=== PATIENT | female | born 1995 | race Caucasian/White ===

== ENCOUNTER 2018-10-08 20:21 | Emergency (ER) | payer OTHER ==
--- NOTE | 2018-10-08 20:31 | UC ---
Ear Complaint HPI - HPI Summary HPI Summary: Patient presents to urgent care for evaluation treatment of left ear pain. Patient states his been up a 24 hours. Much worse the last 8 hours. Patient states she also feeling little bit dizzy particularly with movement of her head. No nausea vomiting. 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 Patient's never had tympanostomy tubes. Patient did take Sudafed but did not take anything for pain. Patient states when she swallows she has increased pressure in her ear. No nasal congestion. No fevers or chills. No rash. No nausea vomiting. Patient states she isn't . Patient's medications reviewed this visit. - History of Current Complaint Stated Complaint: EAR PAIN, DIZZY Time Seen by Provider: 10/08/18 20:23 Hx Last Menstrual Period: 2 weeks ago ?: No Onset/Duration: Gradual Onset Severity Initially: Mild Severity Currently: Moderate - Allergies/Home Medications Allergies/Adverse Reactions: Allergies Allergy/AdvReac Type Severity Reaction Status Date / Time No Known Allergies Allergy Verified 10/08/18 20:33 Home Medications: Home Medications Ethinyl Estradiol/Drospirenone [Rafaela 28 Tablet] 1 tab PO DAILY 10/08/18 [History Confirmed 10/08/18] Loratadine [Claritin] 1 tab PO DAILY 10/08/18 [History Confirmed 10/08/18] Olmesartan/Hydrochlorothiazide [Benicar Hct 20-12.5 mg Tablet] 1 tab PO DAILY [History Confirmed 10/08/18] Pseudoephedrine HCl [Sudafed] 1 tab PO ONCE PRN 10/08/18 [History Confirmed ] PMH/Surg Hx/FS Hx/Imm Hx Previously Healthy: Yes - TM rupture x 2, seizures - Surgical History Surgical History: Yes Surgery Procedure, Year, and Place: tonsillectomy - Family History Known Family History: Positive: Non-Contributory Negative: Diabetes - Social History Occupation: Employed Full-time Alcohol Use: Occasionally Substance Use Type: None Smoking Status (MU): Never Smoked Tobacco Review of Systems All Other Systems Reviewed And Are Negative: Yes Constitutional: Positive: Negative Skin: Positive: Negative Eyes: Positive: Negative ENT: Positive: Ear Ache. Negative: Dental Pain, Sore Throat Respiratory: Positive: Negative Cardiovascular: Positive: Negative Gastrointestinal: Positive: Negative Genitourinary: Positive: Negative Motor: Positive: Negative Neurovascular: Positive: Negative Musculoskeletal: Positive: Negative Neurological: Positive: Other - dizziness Physical Exam - Summary Physical Exam Summary: Vital Signs Reviewed: Yes A+Ox3, holding ear, appear uncomfortable Eyes: Conjunctiva Clear, JAMES. EOM intact and full ENT: Hearing grossly normal right TM wnl, left TM ++ fluid, mild erythema TM intact, turbinates boggy, no PND, mmoist, uvula midline, no exudate, no erythema Neck: Positive: Supple Respiratory: Positive: No respiratory distress, No accessory muscle use + CTA throughout no w/r Cardiovascular: RRR nl s1, s2 no m/r CBT <2 sec abd soft + BS nt/nd no guarding, no distension Musculoskeletal Exam: PARDO x 4 without difficulty Strength Intact, ROM Intact Neurological: Positive: Alert, + sensation throughout pt with inreased dizziness with lateral rotation of head ambulatory without assistance Psychological: Positive: Normal Response To examiner Skin: Positive: no rash, no ecchymosis Triage Information Reviewed: Yes Ear Complaint Course/Dx - Course Course Of Treatment: Patient presents with left ear fullness of breath progressed to left ear pain. Patient states over the last several hours she developed a dizzy. Patient with history of similar and has had eardrum ruptures in the past. No fevers or chills. No analgesia taken. Patient's nose is little stuffy. Patient to take Sudafed with little improvement. On exam vital signs are stable. Patient ambulatory without assistance. Patient does have left otitis media clinically. Turbinates are minimally inflamed. Recommend antibiotics as well as Flonase. Continue with Sudafed. Motrin Tylenol. Work note given as needed. Patient comfortable in agreement with plan. Mom present will be driving her home. - Differential Dx/Diagnosis Provider Diagnosis: Left otitis media Discharge - Sign-Out/Discharge Documenting (check all that apply): Patient Departure All imaging exams completed and their final reports reviewed: No Studies - Discharge Plan Condition: Stable Disposition: HOME Prescriptions: Amoxicillin/Clavulanate TAB* [Augmentin TAB 875*] 875 mg PO BID #19 tab Fluticasone NASAL SPRAY 50MCG* [Flonase NASAL SPRAY 50MCG*] 2 spray BOTH NARES DAILY #1 btl Patient Education Materials: Ear Infection (ED) Forms: *Work Release Referrals: Giorgio Miguel, SKATING RINK MANAGER [Primary Care Provider] - Additional Instructions: - take antibiotics as prescribed until gone - okay to alternate ibuprofen (Advil. Motrin) or Tylenol every 3hours for pain. Take with food. Don't take for more than 4-5 days - continue with decongestant (Sudafed, Claritin-D, Chikis-D, Zyretec-D) - Stay hydrated - drink plenty of non-alcoholic, non-caffinated beverages - get plenty of restful sleep - slowly change positions - lying to sitting, sitting to standing - use nasal spray as prescribed - contact your doctor or return with questions or concerns - Billing Disposition and Condition Condition: STABLE Disposition: Home
[2018-10-08 20:33] VITALS: BP 132/81
[2018-10-08] MEDS ORDERED: Amoxicillin/Clavulanate TAB* 875 MG PO ONE (20:50)
== END 2018-10-08 20:57 | disposition home or self-care (01) ==
LOC: UCEAST 20:21
DX: H66.92 Otitis media, unspecified, left ear (principal)
CPT/HCPCS: 99212; A9270-GY; G0463

== ENCOUNTER 2018-11-28 14:24 | Emergency (ER) | payer OTHER ==
--- OUTSIDE RECORDS SUMMARY | 2018-11-28 14:29 | XMS REPORT | Continuity of Care Document ---
:1995 External Reference #:[id number] Author Name Maria De Jesus Thomas O.D. Address [address] [place] [address] Care Team Providers Name Role Phone Giorgio Miguel CHARACTER ACTOR - Nurse Care Team Information Ornamental Metal Worker Helper [phone] Practitioner Problems Active Problems Provider Date Hypothyroidism Onset: Essential hypertension Onset: Seasonal allergy Onset: Pain in eye Maria De Jesus Thomas O.D. Onset: 02/16/2017 Myopia Maria De Jesus Thomas O.D. Onset: 10/17/2018 Social History Type Date Description Comments Sex Unknown ETOH Use Rarely consumes alcohol Tobacco Use Start: Unknown Patient has never smoked Recreational Drug Use Denies Drug Use Smoking Status Reviewed: 10/17/18 Patient has never smoked Allergies, Adverse Reactions, Alerts Description No Known Drug Allergies Medications Active Medications SIG Qnty Indications Ordering Date Provider Cymbalta Unknown 20mg Caps DR Part Omeprazole Unknown 10mg Capsules DR Levothyroxine Sodium Unknown 25mcg Tablets Hydrochlorothiazide Unknown 12.5mg Capsules Rafaela Unknown 3-0.02mg Tablets Claritin 1 tablet per Unknown 10mg Tablets day Topamax Unknown 25mg Tablets Immunizations Description No Information Available Vital Signs Description No Information Available Results Description No Information Available Procedures Description No Information Available Medical Devices Description No Information Available Encounters Description No Information Available Assessments Date Code Description Provider 10/17/2018 H52.13 Myopia, bilateral Maria De Jesus Thomas O.D. Plan of Treatment 10/17/2018 - Maria De Jesus Thomas O.D.H52.13 Myopia, bilateralComments:Smoking can increase the risk of developing or worsening any eye related disease, as well as affect your overall health. If you are a smoker, we strongly recommend that you quit.If you are not a smoker, we strongly recommend that you do not start. You have Myopia, or near sightedness. I have given you a prescription for glasses and contact lens trialsFollow up:2 weeks CL check Functional Status Description No Information Available Mental Status Description No Information Available Referrals Description No Information Available
--- OUTSIDE RECORDS SUMMARY | 2018-11-28 14:29 | XMS REPORT | Continuity of Care Document ---
:1995 External Reference #:[id number] Author Name Giorgio Miguel N.P. Address [address] [place] [id number] Problems Active Problems Provider Date Depressive disorder Giorgio Miguel N.Alexander Onset: 06/09/2014 Anxiety Giorgoi Miguel N.Alexander Onset: 06/09/2014 Hypothyroidism Giorgio Miguel N.Alexander Onset: 11/20/2015 Essential hypertension Giorgio Miguel N.PShanell Onset: 05/31/2016 Seizure Giorgio Miguel NDawit Onset: 11/16/2017 Social History Type Date Description Comments Sex Unknown Tobacco Use Start: Unknown Patient has never smoked Smoking Status Reviewed: 10/17/18 Patient has never smoked Allergies, Adverse Reactions, Alerts Description No Known Drug Allergies Medications Active Medications SIG Qnty Indications Ordering Date Provider Duloxetine HCL Take One 90Caps Lamont, 09/28/2018 60mg Caps Capsule By Giorgio N.P. DR Cardoza Mouth Daily Levothyroxine Sodium Take 1 Tablet 90Tablet Lamont, 09/03/2018 By Mouth Daily Giorgio N.P. 75mcg Tablets Olmesartan Take 1 Tablet 90Tablet Lamont, 09/03/2018 Medoxomil/Hydrochlorot By Mouth Daily Giorgio, N.P. hiazide 20-12.5mg Tablets Omeprazole Take 1 Capsule 90Caps Lamont, 08/05/2018 20mg Capsules By Mouth Every Bessiehelle, N.P. DR Nadia Alexander Take 1 Tablet 84tabs Lamont, 05/07/2018 3-0.02mg Tablets By Mouth Every Bessiehelle, N.P. Day Topiramate Take 1 Tablet 60tabs Lamont, 12/21/2017 50mg Tablets By Mouth Twice Bessiehelle, N.P. A Day Work Note no work Lamont, 11/16/2017 04/12/18-04/13/18 Giorgio N.PShanell for medical reasons Drospirenone-Ethinyl 1 by mouth 28tabs Lamont, 05/19/2017 Estradiol every day Giorgio, N.PShanell 3-0.02mg Tablets History Medications Omeprazole Take 1 Capsule By 90caps Giorgio Miguel, 04/20/2018 - 20mg Mouth Every Day N.P. 08/05/[address] Immunizations CPT Code Status Date Vaccine Lot # [id number] Given 11/16/2017 Influenza Vac, Quadrivalent, Split, 0.5mL Dosage, [id number] Im Use 17352 Given 12/19/2013 Afluria Or Fluvirin Flu Vac Intramuscular [id number] 22010 Given 11/02/2011 Menactra/Menveo Meningococcal Vaccine [id number] 77157 Given 11/02/2011 Tdap (Adacel) Ages 7 And Above Only [id number] 98041 Given 06/16/1998 DTP Immunization 13142 Given 06/16/1998 Oral Poliovirus Immunization 08315 Given 06/16/1998 MMR Virus Immunization [id number] Q2038 Given 12/09/1997 Fluzone Trivalent Immunization [id number] 53098 Given 05/29/1995 DTP Immunization 77564 Given 05/29/1995 Hib Pedvaxhib Vac 3 Dose Schedule 08412 Given 02/15/1995 Varicella (Chicken Pox) Immunization [id number] 80760 Given 02/15/1995 Varicella (Chicken Pox) Immunization [id number] 39015 Given 02/15/1995 MMR Virus Immunization [id number] 71873 Given 1994 Hib Pedvaxhib Vac 3 Dose Schedule 15550 Given 1994 Hepatitis B Vac Ped/Adolescent 3 Dose Schedule 60379 Given 1994 IPV / Poliomyelitis Immunization 09144 Given 1994 DTP Immunization 17610 Given 1994 Hib Pedvaxhib Vac 3 Dose Schedule 08871 Given 1994 IPV / Poliomyelitis Immunization 48221 Given 1994 DTP Immunization 27509 Given 1994 Hepatitis B Vac Ped/Adolescent 3 Dose Schedule 94590 Given 1994 IPV / Poliomyelitis Immunization 77823 Given 1994 DTP Immunization 42368 Given 1994 Hib Pedvaxhib Vac 3 Dose Schedule 94010 Given 1994 Hepatitis B Vac Ped/Adolescent 3 Dose Schedule 09508 Refused 05/19/2017 Influenza Vac, Quadrivalent, Split, 0.5mL Dosage, Im Use Vital Signs Date Vital Result Comment 10/17/2018 12:44pm Body Temperature 97.9 F Weight 196.25 lb Heart Rate 102 /min BP Systolic 104 mmHg BP Diastolic 68 mmHg Height 67 inches 5'7" O2 % BldC Oximetry 99 % BMI (Body Mass Index) 30.7 kg/m2 04/12/2018 1:17pm Body Temperature 97.9 F Weight 210.50 lb Heart Rate 90 /min BP Systolic 124 mmHg BP Diastolic 68 mmHg O2 % BldC Oximetry 99 % Results Test Date Facility Test Result H/L Range Note Laboratory test finding 10/17/2018 [facility] <pending> Procedures Description No Information Available Medical Devices Description No Information Available Encounters Description No Information Available Assessments Date Code Description Provider 10/17/2018 I10 Essential (primary) hypertension Giorgio Miguel, N.P. 10/17/2018 E03.9 Hypothyroidism, unspecified Giorgio Miguel, N.P. 10/17/2018 F39 Unspecified mood [affective] disorder Giorgio Miguel, N.P. 10/17/2018 K21.9 Gastro-esophageal reflux disease without Giorgio Miguel, N.P. esophagitis Plan of Treatment 10/17/2018 - Giorgio Miguel, N.P.I10 Essential (primary) hypertensionComments : stable with current meds. Cont benicar, lose weight, decrease salt in diet pt inst to monitor B/Pat home/work 2-3 times per week and report abngoal: < 140/90 may consider reducing medication dosein near future with additinoal weight lossE03.9 Hypothyroidism, unspecifiedComments:f/u lab results from [id number] Unspecified mood [affective] disorderComments:currently stable on medications (Cymbalta 60mg)she will cont same, attend counseling and recheck 3 moK21.9 Gastro-esophageal reflux disease without esophagitisComments:stable at this time with prilosec 20mg qdavoid GERD precipitants as discussedreport increasing symps, abd pain, or diff or painful swallowing Functional Status Description No Information Available Mental Status Description No Information Available Referrals Description No Information Available
--- OUTSIDE RECORDS SUMMARY | 2018-11-28 14:29 | XMS REPORT | Continuity of Care Document ---
:1995 External Reference #:[id number] Author Name Maria De Jesus Thomas O.D. Address [address] [place] [address] Care Team Providers Name Role Phone Giorgio Miguel ASSOCIATE ENTERTAINMENT EDITOR - Nurse Care Team Information Rattlesnake Farmer [phone] Practitioner Problems Active Problems Provider Date Hypothyroidism [...] Available Results Description No Information Available Procedures Date Code Description Status 10/17/2018 32018 Determination Of Refractive State Completed 10/17/2018 83274 Est Patient Comprehensive Exam Completed 10/17/2018 101 Level 1 SCL Fit/Refit Completed Medical Devices Description No Information Available Encounters Description No Information Available Assessments Date Code Description Provider 10/17/2018 H52.13 Myopia, bilateral Maria De Jesus Thomas O.D. Plan of Treatment No Information Available Functional Status Description No Information Available Mental Status Description No Information Available Referrals Description No Information Available
[2018-11-28 14:51] VITALS: BP 142/80
--- NOTE | 2018-11-28 15:23 | UC ---
Respiratory Complaint HPI - HPI Summary HPI Summary: 23 year old female with PMH + for ear tubes in past presents with fever 103 on monday, below 100 since, sinus congestion, chest congestion. Cough- non- productive typically, occassionaly will cough up phlegm. + fatigue, muscle aches. Denies ear pain, SOB, throat pain. no recent ABX, no recent illnesses. 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 - History of Current Complaint Chief Complaint: UCRespiratory Stated Complaint: CHEST CONGESTION AND COUGH Time Seen by Provider: 11/28/18 15:07 Hx Obtained From: Patient, Family/Body Shop Worker - mother Hx Last Menstrual Period: 1 month ago ?: No Onset/Duration: Sudden Onset, Lasting Days - since Monday, Still Present Timing: Constant Severity Currently: None Pain Intensity: 0 Pain Scale Used: 0-10 Numeric Character: Cough: Nonproductive Associated Signs And Symptoms: Positive: Fever, Chills, Dizziness - intermittent - Allergies/Home Medications Allergies/Adverse Reactions: Allergies Allergy/AdvReac Type Severity Reaction Status Date / Time No Known Allergies Allergy Verified 11/28/18 14:47 PMH/Surg Hx/FS Hx/Imm Hx Previously Healthy: Yes - Surgical History Surgical History: Yes Surgery Procedure, Year, and Place: tonsillectomy - Family History Known Family History: Positive: Non-Contributory Negative: Diabetes - Social History Alcohol Use: Occasionally Substance Use Type: None Smoking Status (MU): Never Smoked Tobacco Review of Systems All Other Systems Reviewed And Are Negative: Yes Constitutional: Positive: Fever, Chills, Fatigue ENT: Positive: Sinus Congestion, Sinus Pain/Tenderness. Negative: Sore Throat, Ear Ache, Nasal Discharge Respiratory: Positive: Cough. Negative: Shortness Of Breath Is Patient Immunocompromised?: No Physical Exam Triage Information Reviewed: Yes Appearance: Well-Appearing, No Pain Distress, Well-Nourished Vital Signs: Initial Vital Signs Temp 98.5 F 11/28/18 14:49 Pulse 99 11/28/18 14:49 Resp 18 11/28/18 14:49 BP 142/80 11/28/18 14:49 Pulse Ox 99 11/28/18 14:49 Vital Signs Reviewed: Yes Eyes: Positive: Conjunctiva Clear ENT: Positive: Hearing grossly normal, Pharyngeal erythema, TMs normal, Uvula midline. Negative: Nasal congestion, TM bulging, TM dull, TM red, Tonsillar swelling, Tonsillar exudate, Sinus tenderness Neck: Positive: Supple, Nontender, No Lymphadenopathy - posterior or anterior cervical Respiratory: Positive: Chest non-tender, Lungs clear, Normal breath sounds, No respiratory distress, No accessory muscle use. Negative: Respiratory distress, Crackles, Rhonchi, Stridor, Wheezing, Expiration Cardiovascular: Positive: RRR, No Murmur Neurological Exam: Normal Neurological: Positive: Alert Psychological Exam: Normal Psychological: Positive: Normal Response To Family Skin Exam: Normal Respiratory Course/Dx - Course Course Of Treatment: Upper Respiratory infections, likely viral - Viral infections typically resolve after 5-7 days - Conservative treatment - Motrin/ Tylenol as needed for pain, fever - Increase fluid intake due to possible dehyration and to help flush out system - Work note given for tomorrow. - Differential Dx/Diagnosis Differential Diagnosis/HQI/PQRI: Laryngitis, Lower Resp Infection, Sinusitis Provider Diagnosis: Upper respiratory disease Discharge ED - Sign-Out/Discharge Documenting (check all that apply): Patient Departure All imaging exams completed and their final reports reviewed: No Studies - Discharge Plan Condition: Good Disposition: HOME Patient Education Materials: Upper Respiratory Infection (ED) Forms: *Work Release Referrals: Giorgio Miguel NP [Primary Care Provider] - Additional Instructions: Upper Respiratory infections, likely viral - Viral infections typically resolve after 5-7 days - Conservative treatment - Motrin/ Tylenol as needed for pain, fever - Increase fluid intake due to possible dehyration and to help flush out system - Work note given for tomorrow. - Billing Disposition and Condition Condition: GOOD Disposition: Home - Attestation Statements Provider Attestation: This patient was not seen by me. I was available for consult. ERIN
== END 2018-11-28 15:30 | disposition home or self-care (01) ==
LOC: UCEAST 14:24
DX: J06.9 Acute upper respiratory infection, unspecified (principal)
CPT/HCPCS: 99211; G0463